=== PATIENT | female | born 1955 | race Caucasian/White ===

== ENCOUNTER 2016-10-02 18:56 | Emergency (ER) | payer OTHER ==
[~2016-10-02] VITALS: Ht 160 cm; Wt 82.0 kg
--- NOTE | 2016-10-02 19:00 | ED.REPORT ---
HPI-Head Prob / Injury Date of Service Oct 02, 2016 ED Provider: Jesus Kate DO This patient is an otherwise healthy 61 year old female brought in by EMS after she developed a left sided facial droop following blunt head trauma and fall off a chair at 1330. Pt. states she stood on a chair and fell 8 ft. She also states that she has a torn meniscus in her right knee and that's what might've caused her to fall. 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 She did not lose consciousness but noticed a lump on her head right away. She did not notice neck pain immediately but it gradually started and worsened upon arriving to urgent care at 1600. Patient was noted to have a left sided facial droop by Urgent Care staff, which is why she was sent to the ED. Facial droop is improved on arrival to the ED. She also complains of throbbing pain at the back of her head but denies headache. She presents to the ED in a C- collar. Nursing Notes Stated Complaint: FALL, FACIAL DROOP Nursing Notes Reviewed: Yes Allergies: Coded Allergies: No Known Allergies (Unverified , 10/02/16) General Time Seen by Provider: 19:00 Chief Complaint Other (Neck pain) Hx Obtained From: Patient Arrived By: Ambulance Onset Occurred: 5 - 8 hours ago Symptom Duration: Since onset Caused by: Fall from height Location: : Neck: Occipital region L: Occipital region R Quality: Painful Radiation: Does not radiate Severity: Current: Moderate Severity: Maximum: Moderate Recent Healthcare: No recent doctor visit, No recent hospitalization Similar Sx Previous: No Risk-Head Prob / Injury NIH Stroke Scale Level of Consciousness: Alert and responsive (0) Ask Month & Age: Both questions right (0) 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) Horizontal EO Movements: None (0) Visual [place]: No visual loss (0) Facial Palsy: Normal symmetry (0) Right Arm Motor Drift (10s): No drift 10 sec (0) Left Arm Motor Drift (10s): No drift 10 sec (0) Right Leg Motor Drift (5s): No drift 5 sec (0) Left Leg Motor Drift (5s): No drift 5 sec (0) Limb Ataxia FNF/Heel-Ramos: No ataxia (0) Sensation (Arms/Legs/Face): No sensory loss (0) Language Aphasia: No aphasia, normal (0) Dysarthria: No dysarthria, normal (0) Extinction/Inattention: No exctinct/inattent (0) NIHSS Score: 0 Time NIHSS Performed: 19:22 Date NIHSS Performed: Oct 02, 2016 )( CVA Risk Stratification Risk factors reviewed Past Medical History Past Medical History Torn meniscus in her right knee Smoking History Unknown if Ever Smoker Social History None reported Other Social History: Local resident Ambulatory Status Independent Review of Systems Review of Systems Note: Noticed left facial droop after she fell Occiptal head pain and bump Basic Review of Systems Respiratory: No shortness of breath, No cough, No wheeze Cardiovascular: No chest pain Hematologic: No bleeding Psychiatric: Normal thought content Musculoskeletal: Reports: Neck pain Complete sys rev & neg: except as marked. Physical Exam Initial Vital Signs Vital Signs (First) Date Time Temp Pulse Resp B/P Pulse Ox O2 Delivery O2 Flow Rate FiO2 10/02/16 19:04 36.7 56 15 148/76 100 Room Air Initial VS: Reviewed Respiratory: Breath sounds normal, Clear to auscultation, No respiratory distress Cardiovascular: Regular rate & rhythm, Heart sounds normal, Intact distal pulses Abdomen / GI: Soft, Non-tender, No guarding, No rebound, No distention Extremities: Vascular intact, Neuro intact, No swelling, No tenderness Skin: Warm, Dry, No cyanosis Psychiatric: Mood/affect normal, Behavior normal, Normal thought content General/Constitutional: Awake, Alert, Well developed Head / Eyes: Atraumatic, Normocephalic, PERRL, EOMI, No nystagmus, No periorbital swelling, Conjunctiva NL Trauma - General: Positive: Stab wound, Stab wounds multiple Trauma - Eye Specific: Positive: Gaze abnormality L, Gaze abnormality R, Ruptured globe L ENT: Atraumatic Trauma - Neck Specific: Positive: Immobilized - C Collar Neurologic: Oriented X3, Speech NL, No motor deficits, No sensory deficits Interpretation & Diagnostics CT ANGIO HEAD AND NECK IMPRESSION: No vascular stenosis or vascular occlusion. Dictated by: Luz Jaimes MD, PhD on 10/02/2016 at 22:02 Approved by: Luz Jaimes MD, PhD on 10/02/2016 at 22:02 Lab Results Interpretation Result Diagram: 10/02/16 1912 10/02/16 1912 Test 10/02/16 19:12 White Blood Count 5.8th/mm3 (3.8-10.1) Red Blood Count 4.32mil/mm3 (3.90-5.20) Hemoglobin 12.7g/dL (12.0-15.6) Hematocrit 38.3% (35.0-46.0) Mean Corpuscular Volume 88.7fL (81-100) Mean Corpuscular Hemoglobin 29.4pg (27.0-35.0) Mean Corpuscular Hemoglobin Concent 33.2% (32.0-37.0) Red Cell Distribution Width 12.8% (12.3-15.4) Platelet Count 299bil/L (150-400) Neutrophils (%) (Auto) 56.9% (40-74) Lymphocytes (%) (Auto) 28.0% (14-46) Monocytes (%) (Auto) 11.3% (4-12) Eosinophils (%) (Auto) 2.7% (0-5) Basophils (%) (Auto) 0.9% (0-3) Prothrombin Time 10.2sec (8.1-12.5) Prothromb Time International Ratio 0.95ratio Activated Partial Thromboplast Time 26.4sec (22.8-33.0) Sodium Level 141mEq/L (134-144) Potassium Level 4.2mEq/L (3.5-5.2) Chloride Level 102mEq/L (97-108) Carbon Dioxide Level 27mmol/L (18-29) Blood Urea Nitrogen 17mg/dL (6-24) Creatinine 0.73mg/dL (0.57-1.00) Estimat Glomerular Filtration Rate 117mL/min (>59) Glucose Level 88mg/dL (60-99) Calcium Level 9.9mg/dL (8.5-10.1) Total Bilirubin 0.2mg/dL (0.0-1.2) Aspartate Amino Transf (AST/SGOT) 20U/L (0-50) Alanine Aminotransferase (ALT/SGPT) 17U/L (0-32) Alkaline Phosphatase 66U/L (25-165) Troponin T < 0.010ug/L (0.0-0.011) Total Protein 7.7g/dL (6.4-8.4) Albumin 4.4g/dL (3.4-5.0) Pulse Oximetry Interpretation Pulse Oximetry Interpretation: 100% on room air Pulse Oximetry: Pulse Ox normal ECG Interpretation ECG Interpretation: SR with a rate of 51 Time: 19:20 Interpreted by: ED physician CT Head Interpretation IMPRESSION: 1. No acute intracranial disease process. 2. Findings telephoned to Dr. Jesus Kate on 10/02/2016 at 1913 hrs. This study fulfills neurological imaging criteria for inclusion or exclusion of acute stroke therapies based on available published neurological imaging guidelines. Dictated by: Luz Jaimes MD, PhD on 10/02/2016 at 19:19 Interpretation / Wet Read by: Interpret - Radiologist CT C-Spine Interpretation IMPRESSION: No fracture. No acute osseous lesion. If there are persistent symptoms or continued clinical suspicion for pathology, then MRI should be considered for further evaluation. Dictated by: Luz Jaimes MD, PhD on 10/02/2016 at 19:43 Interpretation / Wet Read by: Interpret - Radiologist Re-Eval/Medical Decision Med Decision/Clinical Course A 61-year-old female fell off a chair roughly 3 feet off the ground. She struck the back of her head. Initially she did not have loss of consciousness but she had a severe headache. She was seen at the urgent care course she then developed left-sided facial droop and some asymmetric sensation in the side of her face. This was concerning enough for stroke or possibly concussion. She is brought to the emergency department and activated as a stroke. Her CT followed by her CT angiogram were normal. I felt strongly that the angiogram needed to be performed to rule out an arterial dissection. The CT) was very reassuring. I doubt that she had a TIA after hitting her head far more likely this is a concussion. Her symptoms have resolved completely. I think that she needs close outpatient follow-up. Consider MRI. Short course of opiates for the pain. She consider antiplatelet with her primary care physician. She is to return if any problems or any worsening symptoms. Source of Hx: Old records, EMS Re-Evaluation/Progress : Time of Eval: 22:20 Patient Status: Condition improved Re-Evaluation/Progress Note: Pt. rechecked. Disccused imaging results and labs with pt. Ready for discharge. Pt. understands and agrees with plan. All questions have been addressed. Counseled Regarding: Diagnosis, Lab results, Need for follow-up, When/why to return to ED Discharge & Departure Primary Impression: Head injury Encounter type: initial encounter Qualified Code: S09.90XA - Unspecified injury of head, initial encounter Additional Impressions: Concussion Encounter type: initial encounter Loss of consciousness presence/duration: without LOC Qualified Code: S06.0X0A - Concussion without loss of consciousness, initial encounter Neck strain Encounter type: initial encounter Qualified Code: S16.1XXA - Strain of muscle, fascia and tendon at neck level, initial encounter Disposition: Home All VS Reviewed: Yes Condition: Stable Patient Instructions: Concussion (ED), Minor Head Injury (ED) Additional Instructions: Thank you for entrusting your care with us today. You have a head injury, concussion, and neck strain. Take 1-2 Percocet every 4-6 hours as needed for pain. Do not drive, drink alcohol, or take acetaminophen while on this medication. Take Zofran as needed for nausea. Follow up with your primary care provider for further evaluation. Return to the emergency room if you develop vomiting, increased pain, dizziness, lightheadedness, shortness of breath, chest pain, or any other concerning or new symptoms. Referrals: Stas Helton MD (PCP) Scribe Attestation Portions of this note were transcribed by Lauryn Chery and Amarilis Jeffers I, Dr. Kate personally performed the history, physical exam and medical decision-making ; I reviewed and confirmed the accuracy of the information in the transcribed note. Signed by: Lauryn Chery and Estiven Long, 10/03/2016 and 0040. copies to: Stas Helton MD, Todd P DO Oct 02, 2016 19:00 Maggy Chery [Lauryn] Oct 02, 2016 19:31 Amarilis Jeffers Oct 03, 2016 00:06
[2016-10-02 19:04] VITALS: BP 148/76; PULSE 56; RESP 15; O2SAT 100
--- NOTE | 2016-10-02 19:20 | DRSVH ---
PROCEDURE: CT BRAIN (TPA) ([id number]) INDICATIONS: Stroke TECHNIQUE: Noncontrast 4.5 mm thick angled axial sections acquired from the foramen magnum to the vertex, with c oronal reformats. COMPARISON: None. FINDINGS: Image quality: Excellent. CSF spaces: Basal cisterns are patent. No extra-axial fluid collections. Ventricles are normal in size and shape. Brain: No midline shift. No intracranial masses or hemorrhage. [place]-white matter interface is norm al. Skull and face: Calvarium and visualized facial bones are intact, without suspicious lesions. Sinuses: Visualized sinuses and mastoids are clear. IMPRESSION: 1. No acute intracranial disease process. 2. Findings telephoned to Dr. Jesus Kate on 10/02/2016 at 1913 hrs. This study fulfills neurological imaging criteria for inclusion or exclusion of acute stroke therapie s based on available published neurological imaging guidelines. Dictated by: Luz Jaimes MD, PhD on 10/02/2016 at 19:19 Approved by: Luz Jaimes MD, PhD on 10/02/2016 at 19:19
[2016-10-02 19:23] LABS: BASOPHILS % (AUTO) 0.9 % (0-3); EOSINOPHILS % (AUTO) 2.7 % (0-5); MONOCYTES % (AUTO) 11.3 % (4-12); Mean Corpuscular Hemoglobin 29.4 pg (27.0-35.0); Mean Corpuscular Volume 88.7 fL (81-100); NEUTROPHILS % (AUTO) 56.9 % (40-74); Platelet Count 299 bil/L (150-400)
--- NOTE | 2016-10-02 19:45 | DRSVH ---
PROCEDURE: CT CERVICAL SPINE WITHOUT CONTRAST ([id number]) INDICATIONS: fall TECHNIQUE: Noncontrast 3 mm thick sections acquired from the skull base to the T4 level. Sagittal and coronal r eformats were then constructed. For radiation dose reduction, the following was used: automated exp osure control, adjustment of mA and/or kV according to patient size. COMPARISON: None. FINDINGS: Image quality: Excellent. Bones: No fractures or dislocations. Visualized superior ribs are intact. Multilevel degenerative c hanges and facet arthropathy are noted. Soft tissues: Prevertebral soft tissues are normal in thickness. No paravertebral hematomas. No ap ical pneumothoraces. IMPRESSION: No fracture. No acute osseous lesion. If there are persistent symptoms or continued clin ical suspicion for pathology, then MRI should be considered for further evaluation. Dictated by: Luz Jaimes MD, PhD on 10/02/2016 at 19:43 Approved by: Luz Jaimes MD, PhD on 10/02/2016 at 19:43
[2016-10-02 19:49] LABS: INR 0.95 ratio
[2016-10-02 20:01] LABS: TROPONIN T < 0.010 ug/L (0.0-0.011)
--- NOTE | 2016-10-02 22:04 | DRSVH ---
PROCEDURE: CT ANGIO HEAD AND NECK (P) INDICATIONS: neck pain, left facial droop, head injury TECHNIQUE: Pre-contrast 4.5 mm thick sections acquired from the foramen magnum to the vertex. After the adminis tration of intravenous contrast, 1 mm thick sections acquired from the aortic arch through the [place] of [place]. Post-contrast 4.5 mm thick sections then re-acquired from the foramen magnum to the vert ex. 3-dimensional tsurtbf-ybmegmxzv-fczwhwifwz (MIP) and/or volume rendering reformats were acquired of the central intracranial vasculature and neck separately. For radiation dose reduction, the foll owing was used: automated exposure control, adjustment of mA and/or kV according to patient size. COMPARISON: None. FINDINGS: Image quality: Excellent. BRAIN: CSF spaces: Ventricles are normal in size and shape. Basal cisterns are patent. No extra-axial flu id collections. Brain: No midline shift. No intracranial bleeds or masses. [place]-white matter interface appears int act. Skull and face: Calvarium and facial bones appear intact, without suspicious lesions. Orbits appear normal. Sinuses: Sinuses and mastoids are clear. HEAD CT ANGIOGRAPHY: Anterior circulation: Intracranial internal carotid arteries are normal in size and flow. The flow within the paired anterior cerebral arteries is normal and symmetric. The flow within the middle cer ebral arteries is normal and symmetric. The anterior communicating artery is seen. No aneurysms are seen. Posterior circulation: Visualized portions of the vertebral arteries demonstrate normal caliber, and join to form a normal appearing basilar artery. Flow within the posterior cerebral arteries is norm al and symmetric. No aneurysms are seen. Normal contrast enhancement of the dural sinuses noted. NECK CT ANGIOGRAPHY: Carotid system: The great vessels demonstrate a conventional anatomy as they arise from the aortic a [facility]. The origins of the common carotid arteries appear patent. The common carotid arteries demonstr ate normal caliber and courses. The bifurcation regions are both widely patent. The internal caroti d arteries demonstrate normal calibers and courses. Posterior circulation: The origins of the vertebral arteries both appear widely patent. The more [place] perior extracranial portions of both vertebral arteries also demonstrate normal courses and calibers. They join to form a normal appearing basilar artery. Soft tissues: Visualized neck soft tissues demonstrate no suspicious abnormalities. Bones: No suspicious bony lesions. Visualized cervical spine appears normally aligned. IMPRESSION: No vascular stenosis or vascular occlusion. Dictated by: Luz Jaimes MD, PhD on 10/02/2016 at 22:02 Approved by: Luz Jaimes MD, PhD on 10/02/2016 at 22:02
[2016-10-02] MEDS ORDERED: _oxyCODONE/APAP 5-325 mg Tablet PO PRN (22:20)
[2016-10-02] MEDS ORDERED: _Ondansetron ODT 4 mg Tablet PO PRN (22:20)
[2016-10-02 22:31] VITALS: BP 113/74; PULSE 60; RESP 16; O2SAT 97
[2016-10-31] MEDS ORDERED: FEXO-15 PO (10:59)
[2016-10-31] MEDS ORDERED: TRAM50TA2 PO (10:59)
[2016-10-31] MEDS ORDERED: CELE50CA PO (10:59)
[2016-10-31] MEDS ORDERED: NADO40TA PO (10:59)
[2016-10-31] MEDS ORDERED: DESO15CR25 TP (10:59)
[2016-10-31] MEDS ORDERED: FLUO20CA25 PO (10:59)
[2016-10-31] MEDS ORDERED: MULT-1018 PO (10:59)
== END 2016-10-02 23:30 | disposition home or self-care (01) ==
LOC: SED 18:56
DX: S06.0X0A Concussion without loss of consciousness, initial encounter (principal); S16.1XXA Strain of muscle, fascia and tendon at neck level, initial encounter; W01.198A Fall on same level from slipping, tripping and stumbling with subsequent striking against other object, initial encounter; Y93.89 Activity, other specified; Y92.241 Library as the place of occurrence of the external cause; Y99.0 Civilian activity done for income or pay
CPT/HCPCS: 36415; 70450; 70496; 70498; 72125; 80053; 82948; 84484; 85025; 85610; 85730; 93005; 99285; Q9967

== ENCOUNTER 2016-11-04 11:19 | Day surgery (SDC) | payer OTHER ==
[2016-11-04] VITALS (9 sets, daily range): BP systolic 120–147; BP diastolic 65–97; PULSE 52–66; RESP 13–23; O2SAT 96–100
[~2016-11-04] VITALS: Ht 160 cm; Wt 82.0 kg
--- NOTE | 2016-11-04 08:51 | PCM.HPANE ---
Patient Data Surgeon Admitting Provider: Attending Provider:Kristian Marcano DO Primary Care Physician:Stas Helton MD Other Provider:Pearl Dsouza Anesthesia Reason for Visit Right Knee Medial Meniscal Tear Ht/WT & BMI Height (Feet): 5 Height (Inches): 3 Weight (Kilograms): 82 Body Mass Index 32.00 Allergies Coded Allergies: No Known Allergies (Unverified , 10/31/16) Past Anesthesia History Anesthesia History: Denies:: Anesthesia Reactions, Malignant Hyperthermia Diabetes History Hx Diabetes?: No MRSA MRSA: No Medications Hypertension Medication: Yes (NADOLOL) Reported Medications Tramadol 50 Mg [id number] Mg PO Q6H PRN For Pain Ref 0 10/31/16 Nadolol 40 Mg Oroxrt436 Mg PO DAILY 30 Days Ref 0 10/31/16 Multivitamin (Multi Vitamin Daily)1 Each Tablet1 Each PO DAILY 30 Days Ref 0 10/31/16 Fluoxetine 20 Mg Pnndztq80 Mg PO DAILY Ref 0 10/31/16 Desonide (Desonide Cream)15 Gm Cream..g.1 Applic TP BID #1 TUBE Ref 0 0.05% 10/31/16 Celecoxib (Celebrex)50 Mg Bhrpzwz43 Mg PO DAILY #30 CAPSULE Ref 0 10/31/16 Fexofenadine (Rowan Allergy)60 Mg Dhhkxq13 Mg PO BID 10/31/16 History History of ENT Problems?: Yes HEENT History: Positive for:: Sinus Problem (SEASONAL ALLERGIES) Hx of Heart Problems?: Yes Cardiovascular History: Positive for:: Hypertension Denies:: Congestive Heart Failure Heart Murmur Hx of Respiratory Problem?: No Respiratory History: Denies:: Tuberculosis Use of C-PAP Machine Hx Neurologic Problems?: Yes Other Neurological Pertinent: HX FALLS R/T UNSTABLE KNEE RT-09/2016 FALL W/ BLUNT HEAD TRAUMA/CONCUSSION W/ TRANSIENT LT FACIAL DROOP (RESOLVED) Hx of GI Problems?: Yes Gastrointestinal History: Denies:: Diverticulitis (DIVERTICULOSIS) Hx of Problems?: No Female Hx: Positive for:: Problems with Breasts? (S/P RT BREAST BX,LUMPECTOMY/ SENT NODE PROC. FOR CA) Denies:: Currently Skin History: Denies:: History Skin Disorders? Pressure Ulcers Hx Musculoskeletal Problems?: Yes Musculoskeletal History: Positive for:: Musculoskeletal Trauma (RT KNEE MENISCAL TEAR=CURRENT PROBLEM KNEE UNSTABLE W/ FALLS) Hx of Psycho/Social Problems?: Yes Psycho Social History: Positive for:: Anxiety Hx Depression Hx Any Other Health Problems?: Yes Other History: Denies:: Cancer Endocrine Disease (C/OF NIGHT SWEATS) Hospitalization Thyroid Disease Hx Diabetes: No Hx Alcohol Use: NoHx Substance Use: No Smoking Status: Unknown if Ever Smoker Have You Smoked inLast 12 mo: No Stop/Bang S-Snoring: Do You Snore Loudly: No T-Tired: feel tired, fatigued: Yes O-Obsered: Observed not breath: No P-Blood Pressure: treated: Yes B- Body Mass Index > 35 kg/m2: No A- Age over 50: Yes N- Neck Large Circumference: No G- Gender Male: No MARY ELLEN Total Score: 3 Risk Assessment Category Category 1A: Patient has history of documented sleep apnea, and HAS NOT received any narcotic, sedative or anesthesia administration during this stay. Category 1B: Patient has history of documented sleep apnea, and HAS received any narcotic , sedative or anesthesia administration during this stay Category 2: Patient has SUSPECTED Obstructive Sleep Apnea, and HAS received any narcotic , sedative or anesthesia administration during this stay. Category 3: Patient has SUSPECTED Obstructive Sleep Apnea and HAS NOT received narcotic, sedative or anesthesia administration during this stay. Category 4: Outpatient in Procedural Areas with known sleep apnea or who screen positive for High Risk via the STOP/BANG questionnaire. Plan Impression Patient chart reviewed, patient interviewed and anesthestic plan with risks, benefits, and alternatives discussed, and informed consent obtained. Roby Nieto DO Nov 04, 2016 08:51
[~2016-11-04 11:19] MED LIST: CELE50CA PO; DESO15CR25 TP; FEXO-15 PO; FLUO20CA25 PO; Lactated Ringer's 1,000 ML IV SCH; MULT-1018 PO; NADO40TA PO; TRAM50TA2 PO
[2016-11-04] MEDS ORDERED: MetoCLOpramide 5 mg/mL 2 mL Inj ONE (11:20)
[2016-11-04] MEDS ORDERED: Propofol 10,000 mCg/mL 20 mL Inj ONE (11:20)
[2016-11-04] MEDS ORDERED: Dexamethasone 4 mg/mL Inj ONE (11:20)
[2016-11-04] MEDS ORDERED: Ondansetron 2 mg/mL 2 mL Inj ONE (11:20)
[2016-11-04] MEDS ORDERED: Lactated Ringer's 500 ML IV PRN (12:37)
[2016-11-04] MEDS ORDERED: Lactated Ringer's 1,000 ML IV SCH (12:37)
--- NOTE | 2016-11-04 12:37 | PCM.HPANE ---
Patient Data Surgeon Admitting Provider: Attending Provider:Kristian Marcano DO Primary Care Physician:Stas Helton MD Other Provider:Pearl Dsouza Anesthesia Reason for Visit Right Knee Medial Meniscal Tear Ht/WT & BMI Height (Feet): 5 Height (Inches): 3 Weight (Kilograms): 82 Body Mass Index 32.00 Allergies Coded Allergies: No Known Allergies (Unverified , 10/31/16) Past Anesthesia History Anesthesia History: Denies:: Anesthesia Reactions, Malignant Hyperthermia Diabetes History Hx Diabetes?: No MRSA MRSA: No Medications Hypertension Medication: Yes (NADOLOL) Home Meds Incl Beta Jyotsna: Yes Date Beta Jyotsna Taken: Nov 04, 2016 Time Beta Jyotsna Taken: 0730 Reported Medications Tramadol 50 Mg Xlefdu68 Mg PO Q6H PRN For Pain Ref 0 10/31/16 Nadolol 40 Mg Wvzkjg039 Mg PO DAILY 30 Days Ref 0 10/31/16 Multivitamin (Multi Vitamin Daily)1 Each Tablet1 Each PO DAILY 30 Days Ref 0 10/31/16 Fluoxetine 20 Mg Erhuetm91 Mg PO DAILY Ref 0 10/31/16 Desonide (Desonide Cream)15 Gm Cream..g.1 Applic TP BID #1 TUBE Ref 0 0.05% 10/31/16 Celecoxib (Celebrex)50 Mg Wnndonp51 Mg PO DAILY #30 CAPSULE Ref 0 10/31/16 Fexofenadine (Rowan Allergy)60 Mg Ldtkwv58 Mg PO BID 10/31/16 History History of ENT Problems?: Yes HEENT History: Positive for:: Sinus Problem (SEASONAL ALLERGIES) Hx of Heart Problems?: Yes Cardiovascular History: Positive for:: Hypertension Denies:: Congestive Heart Failure Heart Murmur Hx of Respiratory Problem?: No Respiratory History: Denies:: Tuberculosis Use of C-PAP Machine Hx Neurologic Problems?: Yes Other Neurological Pertinent: HX FALLS R/T UNSTABLE KNEE RT-09/2016 FALL W/ BLUNT HEAD TRAUMA/CONCUSSION W/ TRANSIENT LT FACIAL DROOP (RESOLVED) Hx of GI Problems?: Yes Gastrointestinal History: Denies:: Diverticulitis (DIVERTICULOSIS) Hx of Problems?: No Female Hx: Positive for:: Problems with Breasts? (S/P RT BREAST BX,LUMPECTOMY/ SENT NODE PROC. FOR CA) Denies:: Currently Skin History: Denies:: History Skin Disorders? Pressure Ulcers Hx Musculoskeletal Problems?: Yes Musculoskeletal History: Positive for:: Musculoskeletal Trauma (RT KNEE MENISCAL TEAR=CURRENT PROBLEM KNEE UNSTABLE W/ FALLS) Hx of Psycho/Social Problems?: Yes Psycho Social History: Positive for:: Anxiety Hx Depression Hx Surgeries?: Yes Hx Any Other Health Problems?: Yes Other History: Denies:: Cancer Endocrine Disease (C/OF NIGHT SWEATS) Hospitalization Thyroid Disease Hx Diabetes: No Hx Alcohol Use: NoHx Substance Use: No Smoking Status: Unknown if Ever Smoker Have You Smoked inLast 12 mo: No Stop/Bang S-Snoring: Do You Snore Loudly: No T-Tired: feel tired, fatigued: Yes O-Obsered: Observed not breath: No P-Blood Pressure: treated: Yes B- Body Mass Index > 35 kg/m2: No A- Age over 50: Yes N- Neck Large Circumference: No G- Gender Male: No MARY ELLEN Total Score: 3 MARY ELLEN Risk Assessment: Low Risk, <3 Yes Risk Assessment Category Category 1A: Patient has history of documented sleep apnea, and HAS NOT received any narcotic, sedative or anesthesia administration during this stay. Category 1B: Patient has history of documented sleep apnea, and HAS received any narcotic , sedative or anesthesia administration during this stay Category 2: Patient has SUSPECTED Obstructive Sleep Apnea, and HAS received any narcotic , sedative or anesthesia administration during this stay. Category 3: Patient has SUSPECTED Obstructive Sleep Apnea and HAS NOT received narcotic, sedative or anesthesia administration during this stay. Category 4: Outpatient in Procedural Areas with known sleep apnea or who screen positive for High Risk via the STOP/BANG questionnaire. Exam Exam Vital Signs Vital Signs Date Time Temp Pulse Resp B/P Pulse Ox O2 Delivery O2 Flow Rate FiO2 11/04/16 11:52 36.7 56 14 120/66 96 Room Air General Appearance: Oriented X3 HEENT/AIRWAY: MP 2 Lungs: Normal Air Movement Heart: Regular Rate/Rhythm Plan Impression Patient chart reviewed, patient interviewed and anesthestic plan with risks, benefits, and alternatives discussed, and informed consent obtained. NPO Status: confirmed before mn ASA Physical Status: ASA2 Mod Systemic Disease Anesthetic Plan: GA Bene/Risks/Altern/Consents: Yes HP Complete Prior to Induction: Yes Gregor Aly MD Nov 04, 2016 12:37
[2016-11-04] MEDS ORDERED: Dexamethasone 4 mg/mL Inj IVPUSH PRN (12:40)
[2016-11-04] MEDS ORDERED: Ondansetron 2 mg/mL 2 mL Inj IVPUSH PRN (12:40)
[2016-11-04] MEDS ORDERED: fentaNYL-PF 50 mCg/mL 2 mL Inj IVPUSH PRN (12:40)
[2016-11-04] MEDS ORDERED: MetoCLOpramide 5 mg/mL 2 mL Inj IVPUSH PRN (12:40)
[2016-11-04] MEDS ORDERED: HYDROmorphone 1 mg/mL Inj IVPUSH PRN (12:40)
[2016-11-04] MEDS ORDERED: Phenylephrine 10,000 mCg/mL Inj IVPUSH PRN (12:40)
[2016-11-04] MEDS ORDERED: EPHEDrine Sulfate 50 mg/mL Inj IVPUSH PRN (12:40)
[2016-11-04] MEDS ORDERED: Lidocaine 2%-Epi 1:100,000 20 mL Inj NERVEBLOCK ONE (13:54)
[2016-11-04] MEDS ORDERED: Ropivacaine-PF 0.5% 30 mL Inj INFILTRATE ONE (13:56)
[2016-11-04] MEDS ORDERED: HYDROcodone-APAP 5-325 mg Tablet PO PRN (14:15)
[2016-11-04] MEDS ORDERED: hydrOXYzine Pamoate 25 mg Capsule PO PRN (14:15)
--- NOTE | 2016-11-04 14:48 | OP ---
[address] [address] OPERATIVE REPORT PATIENT: YAZMIN SWARTZ : 1955 MR#: [id number] ADMIT: 11/04/2016 JOB ID: [id number] DATE OF SURGERY: 11/04/2016 PREOPERATIVE DIAGNOSIS(ES): Right knee torn medial meniscus. POSTOPERATIVE DIAGNOSIS(ES): Right knee torn medial meniscus. PROCEDURES: Right knee video arthroscopy with partial medial meniscectomy. SURGEON: Kristian Marcano DO MANUFACTURING QUALITY TECHNICIAN: Ayaan Marino DO INDICATIONS: The patient is a 61-year-old female with right knee pain who fell and had a twisting injury in February, continued to have pain despite resting, and wished to proceed with a knee arthroscopy. We discussed the risks, benefits, and possible complications of surgery including, but not limited to, injury to nerves and vessels, infection, bleeding, incomplete relief of symptoms, stiffness, and need for additional procedures. The patient had good understanding. All questions were answered. She wished to proceed. PROCEDURE IN DETAIL: The patient was brought to the operating room. She was given LMA general anesthetic. Her right lower extremity was sterilely prepped and draped. An incision was made over the anterolateral knee at the level of the joint line and the blunt trocar was introduced into the knee. Inspection was undertaken. She was found to have a tear in the midbody and posterior horn medial meniscus. This was resected back to a stable base with a combination of biters and shaver. Using an anterior portal. Her articular cartilage was in good condition, with some minor C1-C2 changes. Her ACL was intact. Her lateral compartment was pristine, without articular pathology or meniscal pathology. Her patellofemoral joint was in good condition as well. The scope was then removed and the portals were closed with interrupted nylon suture. Naropin was added as an adjunct local anesthetic. Sterile dressings were applied. The patient tolerated the procedure well. Blood loss was minimal. POSTOPERATIVE PROTOCOL: I will have the patient weightbear to tolerance. Use crutches as needed. Ice and elevate. Follow up in two weeks or sooner if needed. She is given a prescription for [place] 5/325 for pain.
--- NOTE | 2016-11-05 09:10 | PCM.ANEP2 ---
Post Anesthesia Evaluation ASA/CMS Post Anesthesia VS in Patient's Normal Range?: Yes Resp Stable; Airway Patent?: Yes CV Function & Hydration Stable: Yes Mental Status Recovered?: Yes Pain control Satisfactory?: Yes N/V Control Satisfactory?: Yes Gregor Aly MD Nov 05, 2016 09:10
--- NOTE | 2016-11-05 09:10 | PCM.ANEP1 ---
Post Anesthesia Phase 1 PACU Phase 1 Assessment Anesthetic Administered: GA Level of Alertness: Awake, talking Pain: No Nausea or Vomiting: No Lungs: Normal Air Movement Gregor Aly MD Nov 05, 2016 09:10
== END 2016-11-04 23:59 | disposition home or self-care (01) ==
LOC: SAS 11:19
PROVIDERS: ATTEND Orthopaedic Surgery
DX: S83.241A Other tear of medial meniscus, current injury, right knee, initial encounter (principal); I10 Essential (primary) hypertension; F41.9 Anxiety disorder, unspecified; F32.9 Major depressive disorder, single episode, unspecified; W18.30XA Fall on same level, unspecified, initial encounter; Y93.9 Activity, unspecified; Y92.9 Unspecified place or not applicable; Y99.9 Unspecified external cause status
CPT/HCPCS: 29881; 97116; J1100; J2405; J2765; J2795; J7120

== ENCOUNTER 2016-12-31 12:13 | Emergency (ER) | payer OTHER ==
[~2016-12-31] VITALS: Ht 161.3 cm; Wt 82.3 kg
[~2016-12-31 12:13] MED LIST changes: -Lactated Ringer's 1,000 ML IV SCH
[2016-12-31 12:19] VITALS: BP 130/69; PULSE 56; RESP 22; O2SAT 99
--- NOTE | 2016-12-31 14:46 | ED.REPORT ---
HPI-Abd Pain F 40 and Over Date of Service Dec 31, 2016 ED Provider: Jose Yun MD This is a 61 year old female presenting to the emergency department due to right sided abdominal pain that began 5 hours ago. Described as burning and stabbing. Pain worsened after she ate a granola bar with radiation to the back. Pain exacerbated by deep inspiration and associated with nausea. Currently rated at 3/10 and at 9.5/10 at its worst. Denies similar symptoms previously. Denies history of abdominal surgeries. Denies fever, chills, nausea, vomiting, constipation, diarrhea, or vomiting. Nursing Notes Stated Complaint: ABD PAIN Chief Complaint: Female Abdominal Pain Nursing Notes Reviewed: Yes ([employer], [employer] not reconciled) Allergies: Coded Allergies: No Known Allergies (Unverified , 10/31/16) Scheduled Celecoxib (Celebrex) 50 Mg Capsule 50 MG PO DAILY Desonide (Desonide Cream) 15 Gm Cream..g. 1 APPLIC TP BID 0.05% Fexofenadine (Rowan Allergy) 60 Mg Tablet 60 MG PO BID Fluoxetine (Fluoxetine) 20 Mg Capsule 20 MG PO DAILY Multivitamin (Multi Vitamin Daily) 1 Each Tablet 1 EACH PO DAILY Nadolol (Nadolol) 40 Mg Tablet 120 MG PO DAILY Scheduled PRN Hydrocodone-Acetaminophen 5-325 mg (Hydrocodone-Acetaminophen 5-325 mg) 1 Each Tablet 1-2 TABLET PO Q4H PRN PRN For Pain Ondansetron ODT (Ondansetron ODT) 8 Mg Tab.rapdis 8 MG PO Q4H PRN PRN For Nausea Tramadol (Tramadol) 50 Mg Tablet 50 MG PO Q6H PRN PRN For Pain General Time Seen by MD: 14:44 Chief Complaint Abdominal pain Hx Obtained From: Patient Arrived By: Walk-in Sudden in Onset?: Yes Onset Occurred: 5 - 8 hours ago Symptom Duration: Since onset Severity: Current: Moderate Pertinent Negative: Pt denies other symptoms Recent Healthcare: No recent doctor visit, No recent hospitalization Similar Sx Previous: No Past Medical History Past Medical History Torn meniscus in her right knee Smoking History Unknown if Ever Smoker Social History None reported Other Social History: Local resident Ambulatory Status Independent Review of Systems Constitutional: Denies: Chills, Fever GI: Reports: Abdominal pain, Nausea, Denies: Constipation, Diarrhea, Vomiting Female: Denies: Dysuria Complete sys rev & neg: except as marked. Physical Exam Vital Signs Vital Signs (First) Date Time Temp Pulse Resp B/P Pulse Ox O2 Delivery O2 Flow Rate FiO2 12/31/16 12:19 36.2 56 22 130/69 99 Room Air Initial VS: Reviewed, Vital signs normal Head / Eyes: Atraumatic, Normocephalic, PERRL ENT: Mucous membranes moist, Conjunctiva normal, No scleral icterus Neck: Supple, Non-tender, Full range of motion Extremities: Vascular intact, Neuro intact, No swelling, No tenderness Skin: Warm, Dry, No cyanosis Neurologic: Alert, Oriented, Nonfocal Psychiatric: Mood/affect normal, Behavior normal, Normal thought content General/Constitutional: Awake, Alert Respiratory / Chest: Breath sounds NL, Breath sounds = bilat, No respiratory distress, No rales, No rhonchi, No wheezing, No stridor Cardiovascular: Heart rate NL, Regular rhythm, Heart sounds NL, Peripheral circulation NL Abdomen: BS normoactive Back: Inspection NL, Non-tender, No CVA tenderness Interpretation & Diagnostics US IMPRESSION: 1. Cholelithiasis. No evidence of cholecystitis. Dictated by: Nadir Andino M.D. on 12/31/2016 at 16:37 Approved by: Nadir Andino M.D. on 12/31/2016 at 16:38 Lab Results Interpretation Result Diagram: 12/31/16 1445 12/31/16 1445 Test 12/31/16 14:25 12/31/16 14:45 Urine Color Yellow (YELLOW) Urine Appearance Hazy (CLEAR,HAZY) Urine pH 8.5 (5.0-8.0) Urine Specific [place] 1.015 (1.003-1.035) Urine Protein Negativemg/dL (NEG,TRACE) Urine Glucose (UA) Negativemg/dL (NEGATIVE) Urine Ketones Negativemg/dL (NEGATIVE) Urine Occult Blood Negative (NEGATIVE) Urine Nitrite Negative (NEGATIVE) Urine Bilirubin Negative (NEGATIVE) Urine Urobilinogen Normalmg/dL (NORMAL) Urine Leukocyte Esterase Negative (NEGATIVE) Urine RBC 0-2/hpf (0-2) Urine WBC 0-5/hpf (0-5) Urine Epithelial Cells Occasional/hpf (NONE-MOD) Urine Crystals Amorphous phosphates Urine Bacteria Moderate/hpf (NONE-FEW) Urine Hyaline Casts None/lpf (NONE) Urine Granular Casts None seen (NONE SEEN) Urine Waxy Casts None seen (NONE SEEN) Urine Red Blood Cell Casts None seen (NONE SEEN) Urine White Blood Cell Casts None seen (NONE SEEN) Urine Mucus None seen (None Seen) Urine Trichomonas None seen (NONE SEEN) Urine Yeast None (NONE SEEN) Urinalysis Comment None Urine Culture Reflexed Indicated Hold Urine Received (Received) White Blood Count 5.3th/mm3 (3.8-10.1) Red Blood Count 4.20mil/mm3 (3.90-5.20) Hemoglobin 12.5g/dL (12.0-15.6) Hematocrit 37.7% (35.0-46.0) Mean Corpuscular Volume 89.8fL (81-100) Mean Corpuscular Hemoglobin 29.8pg (27.0-35.0) Mean Corpuscular Hemoglobin Concent 33.2% (32.0-37.0) Red Cell Distribution Width 12.8% (12.3-15.4) Platelet Count 291bil/L (150-400) Neutrophils (%) (Auto) 65.7% (40-74) Lymphocytes (%) (Auto) 21.9% (14-46) Monocytes (%) (Auto) 9.3% (4-12) Eosinophils (%) (Auto) 1.9% (0-5) Basophils (%) (Auto) 1.0% (0-3) Sodium Level 137mEq/L (134-144) Potassium Level 4.1mEq/L (3.5-5.2) Chloride Level 99mEq/L (97-108) Carbon Dioxide Level 25mmol/L (18-29) Blood Urea Nitrogen 20mg/dL (6-24) Creatinine 0.73mg/dL (0.57-1.00) Estimat Glomerular Filtration Rate 117mL/min (>59) Glucose Level 94mg/dL (60-99) Calcium Level 10.6mg/dL (8.5-10.1) Magnesium Level 2.1mg/dL (1.6-2.6) Total Bilirubin 0.4mg/dL (0.0-1.2) Aspartate Amino Transf (AST/SGOT) 21U/L (0-50) Alanine Aminotransferase (ALT/SGPT) 16U/L (0-32) Alkaline Phosphatase 65U/L (25-165) Total Protein 7.5g/dL (6.4-8.4) Albumin 4.2g/dL (3.4-5.0) Lipase 26U/L (13-60) Hold [place] Top Tube Received (Received) Lab Results Interpretation: CBC normal CMP normal lipase normal Re-Eval/Medical Decision Med Decision/Clinical Course This is a 61-year-old female presents with symptoms concerning for gallbladder pathology with sudden onset of right upper quadrant pain radiating to back following eating. 3 of known gallstones or pathology. The patient is uncomfortable, but has only trace tenderness on clinical exam. She otherwise appears well as not febrile or toxic. Blood work was normal, ultrasound demonstrates multiple mobile stones, but no findings of nataly cholecystitis. The patient's symptoms responded quickly to pain management. Reexam she is much improved and feels much better. At this point I am not finding evidence of cholecystitis but simply symptomatic biliary colic. The patient's couple discharged home, routine precautions reviewed. Surgical referral provided. Patient's vitals take a dose of ibuprofen and if needed when necessary hydrocodone should mild episode occur, if symptoms are refractory, persisted she developed new or worsening symptoms such as fever-she will return to the [facility] department. Patient is discharged much improved condition. Source of Hx: Old records Re-Evaluation/Progress : Time of Eval: 16:17 Re-Evaluation/Progress Note: Discussed plan for d/c all questions addressed. Differential Diagnosis: Positive: Cholelithiasis, Negative: Acute abdominal pain, Acute coronary syndrome, Angina / DC, Appendicitis, Bladder outlet obstruct, Cholangitis, Cholecystitis, Contusion abdominal wall, Diabetic ketoacidosis, Diarrhea, Diverticular disease, Ectopic , Endometriosis, Esophageal rupture, Gun shot wound abdomen, Infectious mononucleosis, Inflam bowel disease, Inguinal hernia, Pancreatitis, Peritonitis, Trauma, abdominal, Unstable angina Counseled Regarding: Diagnosis, Lab results, Need for follow-up, When/why to return to ED Discharge & Departure Primary Impression: Cholelithiasis Cholelithiasis location: gallbladder Cholecystitis presence: without cholecystitis Biliary obstruction: without biliary obstruction Qualified Code : K80.20 - Calculus of gallbladder without cholecystitis without obstruction Disposition: Home Discharge Condition All VS Reviewed: Yes Condition: Stable Additional Instructions: 1. Your ultrasound demonstrates the gallbladder does have gallstones - but there were no findings such her gallbladder was infected. 2. This means that you do not need emergency surgery at this time, but you will need to follow up with a surgeon to discuss elective removal should symptoms be frequent and/or recurrent. 3. Try to avoid fatty foods which are the triggers her gallbladder contraction. See printed information. 4. If pain re-occurs take 400 mg of ibuprofen, and if needed for more severe pain 1-2 tabs of hydrocodone/APAP Hydrocodone/APAP contains a narcotic and causes drowsiness. No driving for at least 4-6 hours after taking. 5. This, her lasting greater than 6 hours, if he develops fever, uncontrolled or intractable/severe pain-return to the emergency department directly. 6. Call Dr. Hunt's office for an appointment for followup. Referrals: Stas Helton MD (PCP) Scribe Attestation Portions of this note were transcribed by Betty Zheng. I, Dr. Yun personally performed the history, physical exam and medical decision-making; I reviewed and confirmed the accuracy of the information in the transcribed note. Signed by Estiven Robin, 12/31/2016 at 18:00. Jose Yun MD Dec 31, 2016 14:46 BETTY ZHENG Dec 31, 2016 14:52
[2016-12-31] MEDS ORDERED: Ondansetron 2 mg/mL 2 mL Inj IVPUSH ONE (14:55)
[2016-12-31] MEDS ORDERED: HYDROmorphone 0.5 mg/0.5 mL iSecure Syringe IVPUSH PRN (14:55)
[2016-12-31 14:57] LABS: EOSINOPHILS % (AUTO) 1.9 % (0-5); MONOCYTES % (AUTO) 9.3 % (4-12); Mean Corpuscular Hemoglobin 29.8 pg (27.0-35.0); Mean Corpuscular Volume 89.8 fL (81-100); NEUTROPHILS % (AUTO) 65.7 % (40-74); Platelet Count 291 bil/L (150-400)
[2016-12-31 15:15] LABS: Magnesium 2.1 mg/dL (1.6-2.6)
[2016-12-31 15:20] LABS: APPEARANCE,URINE HAZY (CLEAR,HAZY); COLOR,URINE YELLOW (YELLOW); OCCULT BLOOD,URINE NEGATIVE (NEGATIVE); PH,URINE 8.5 (5.0-8.0); UROBILINOGEN,URINE NORMAL (NORMAL)
[2016-12-31 16:08] VITALS: BP 137/67; PULSE 78; RESP 17; O2SAT 98
[2016-12-31] MEDS ORDERED: HYDR-4003 PO (16:14)
[2016-12-31] MEDS ORDERED: ONDA8TAB10 PO (16:14)
[2016-12-31 16:40] VITALS: BP 133/67; PULSE 79; RESP 16; O2SAT 99
--- NOTE | 2016-12-31 16:40 | DRSVH ---
PROCEDURE: US ABDOMEN INDICATIONS: RUQ pain TECHNIQUE: Real-time scanning was performed of the abdominal and retroperitoneal organs, with image documentatio n. COMPARISON: None. FINDINGS: Liver length: 12.37 cm Gallbladder Wall Thickness: 1.50 mm CHD: Not seen CBD: 4.50 mm Spleen length: 7.19 cm Right kidney length: 9.65 cm Left kidney length: 9.90 cm Aorta(Proximal): 1.95 cm Aorta(Mid): 1.80 cm Aorta(Distal): 1.33 cm RCIA: 0.8 cm LCIA: 1 cm Liver: Liver is normal in size and homogeneous in echotexture. Gallbladder: Demonstrates multiple small calculi within its lumen Biliary ducts: Intrahepatic bile ducts are non-dilated. Extrahepatic bile duct caliber is normal. Normal is 6-7 mm or less in diameter, or 10 mm or less post-cholecystectomy. Pancreas: Visualized portions of the pancreas are sonographically normal. Pancreatic tail was not w ell-seen. Spleen: Spleen is normal in size and homogeneous in echotexture. Kidneys: Kidneys are normal in size and echotexture. No hydronephrosis or nephrolithiasis. No ann d masses. Aorta: Visualized aorta is normal in caliber at less than 3 cm. Iliacs: Proximal common iliac arteries are normal in caliber at less than 2.5 cm. IVC: Intrahepatic inferior vena cava is patent. Miscellaneous: No free abdominal fluid. IMPRESSION: 1. Cholelithiasis. No evidence of cholecystitis. Dictated by: Nadir Andino M.D. on 12/31/2016 at 16:37 Approved by: Nadir Andino M.D. on 12/31/2016 at 16:38
== END 2016-12-31 16:41 | disposition home or self-care (01) ==
LOC: SED 12:13
DX: K80.20 Calculus of gallbladder without cholecystitis without obstruction (principal)
CPT/HCPCS: 36415; 76700; 80053; 81000; 83690; 83735; 85025; 87086; 87088; 93005; 96374; 96375; 99285; J1170; J2405